=== PATIENT | female | born 1960 | race Caucasian/White ===

== ENCOUNTER 2021-08-04 01:13 | Emergency (ER) | payer MEDICAID ==
[~2021-08-04] VITALS: Ht 167.6 cm; Wt 81.8 kg
[2021-08-04] MEDS ORDERED: morphine 4 MG/ML inj SYRINge IV ONE ×2 (01:30→02:20)
[2021-08-04] MEDS ORDERED: ondansetron/PF 4mg/2ml inj IV ONE ×2 (01:30→02:20)
[2021-08-04] MEDS ORDERED: morphine 4 MG/ML inj SYRINge IM ONE (01:40)
[2021-08-04] MEDS ORDERED: ondansetron 4mg rapidly disintigrating tab PO ONE (01:40)
[2021-08-04] MEDS ORDERED: iohexol 350MG/ML 100ml bottle IV ONE (02:26)
[2021-08-04 02:41] LABS: BASOPHILS % (AUTO) 0.3 % (0-1); EOSINOPHILS # (AUTO) 0.2 X10'3 (0-0.9); EOSINOPHILS % (AUTO) 2.7 % (0-6); HEMATOCRIT 37.9 % (35.0-45.0); HEMOGLOBIN 12.9 g/dl (12.0-16.0); LYMPHOCYTES # (AUTO) 2.7 X10'3 (1.1-4.8); MEAN CORPUSCULAR HEMOGLOBIN 31.4 PG (27.0-31.0); MEAN CORPUSCULAR HGB CONC 34.1 g/dL (33.0-36.5); MEAN CORPUSCULAR VOLUME 92.3 FL (78-98); MEAN PLATELET VOLUME 7.2 FL (7.4-10.4); MONOCYTES # (AUTO) 0.8 X10'3 (0-0.9); MONOCYTES % (AUTO) 8.7 % (2-12); NEUTROPHILS # (AUTO) 5.3 X10'3 (1.8-7.7); NEUTROPHILS % (AUTO) 58.3 % (42-75); PLATELET COUNT 361 X10'3 (140-440); RED CELL DISTRIBUTION WIDTH 13.1 % (11.5-14.5); WHITE BLOOD COUNT 9.1 X10'3 (4.5-11.0)
[2021-08-04 02:50] LABS: D-DIMER 0.71 MG/L FEU (0-0.50)
[2021-08-04 02:53] LABS: ALANINE AMINOTRANSFERASE 37 U/L (12-78); ALBUMIN 3.4 G/DL (3.4-5.0); ALKALINE PHOSPHATASE 104 IU/L (46-116); ANION GAP 11 (8-16); ASPARTATE AMINO TRANSFERASE 26 U/L (10-37); BILIRUBIN,TOTAL 0.2 MG/DL (0.1-1.0); BLOOD UREA NITROGEN 17 MG/DL (7-18); BUN/CREATININE RATIO 16.8 (6.6-38.0); CALCIUM 8.5 MG/DL (8.5-10.1); CHLORIDE 111 MMOL/L (99-107); CREATININE 1.01 MG/DL (0.40-0.90); GLUCOSE 111 MG/DL (70-104); POTASSIUM 3.7 MMOL/L (3.5-5.1); SODIUM 142 MMOL/L (135-145); TOTAL PROTEIN 6.9 G/DL (6.4-8.2); eGFR 56 ML/MIN
[2021-08-04 02:56] LABS: LIPASE 414 U/L (73-393)
[2021-08-04 02:57] LABS: BILIRUBIN,DIRECT < 0.1 MG/DL (0-0.3)
[2021-08-04 05:01] VITALS: BP 122/81
== END 2021-08-04 05:03 | disposition home or self-care (01) ==
LOC: ER 01:14
DX: G89.29 Other chronic pain (principal); R07.2 Precordial pain; R06.02 Shortness of breath; M54.50 Low back pain, unspecified; Z88.8 Allergy status to other drugs, medicaments and biological substances
CPT/HCPCS: 36415; 71275; 74174; 80048; 80076; 83690; 84484; 85025; 85379; 93005; 96372; 99285; J2270; Q9967